=== PATIENT | male | born 1975 | race Caucasian/White ===

== ENCOUNTER 2016-09-12 14:51 | Emergency (ER) | payer OTHER ==
[~2016-09-12] VITALS: Ht 152.4 cm; Wt 75.0 kg
[2016-09-12] MEDS: KETOROLAC TROMETHAMINE 30 MG/ML VIAL IM ONE (17:14)
[2016-09-12 17:22] VITALS: BP 123/87
== END 2016-09-12 17:25 | disposition home or self-care (01) ==
LOC: EMS 14:53
DX: S20.211A Contusion of right front wall of thorax, initial encounter (principal); F17.210 Nicotine dependence, cigarettes, uncomplicated; F12.90 Cannabis use, unspecified, uncomplicated; W19.XXXA Unspecified fall, initial encounter; Y93.I9 Activity, other involving external motion; Y92.89 Other specified places as the place of occurrence of the external cause; Y99.8 Other external cause status
CPT/HCPCS: 96372; 99283; J1885